=== PATIENT | male | born 1955 | race Caucasian/White ===

== ENCOUNTER 2021-12-27 14:59 | Inpatient (IN) | payer MEDICARE ==
[~2021-12-27] VITALS: Ht 177.8 cm; Wt 89.6 kg
[2021-12-27 15:52] LABS: BASOPHILS ABSOLUTE AUTO 0.04 K/mm3 (0.00-0.23); BASOPHILS PERCENT AUTO 0 % (0-2); EOSINOPHILS PERCENT AUTO 0 % (0-6); Hematocrit 32.5 % (37.0-53.0); Hemoglobin 10.9 g/dL (13.5-17.5); IMMATURE GRAN ABSOLUTE AUTO 0.24 K/mm3 (0.00-0.10); IMMATURE GRAN PERCENT AUTO 1 % (0-1); LYMPHOCYTES ABSOLUTE AUTO 0.96 K/mm3 (0.84-5.20); LYMPHOCYTES PERCENT AUTO 4 % (21-46); MONOCYTES ABSOLUTE AUTO 1.16 K/mm3 (0.16-1.47); MONOCYTES PERCENT AUTO 5 % (4-13); Mean Corpuscular HGB 32.9 pg (26.0-34.0); Mean Corpuscular HGB Conc 33.5 g/dL (31.5-36.5); Mean Corpuscular Volume 98 fL (80-100); Mean Platelet Volume 9.2 fL (9.1-12.4); NEUTROPHILS PERCENT AUTO 89 % (41-73); Platelet Count 170 K/mm3 (150-400); RDW Coefficient Variation 16.3 % (11.7-14.2); RDW Standard Deviation 58.3 fL (35.1-46.3); Red Blood Cell Count 3.31 M/mm3 (4.30-5.90)
[2021-12-27 16:21] LABS: Albumin, Blood 2.6 g/dL (3.4-5.0); Albumin/Globulin Ratio 0.6 (0.8-1.8); Bilirubin, Total 0.6 mg/dL (0.1-1.0); Bun/Creatinine Ratio 7.2 (12.0-20.0); Calcium, Blood 7.9 mg/dL (8.5-10.1); Creatinine, Blood 7.11 mg/dL (0.60-1.20); Globulin, Blood 4.4 g/dL (2.2-4.0)
[2021-12-27 17:25] LABS: Source, Urine Clean Catch
[2021-12-27 17:29] LABS: Appearance, Urine Clear (Clear); Bilirubin, Urine Neg (Neg); Blood, Urine 1+ (Neg); Color, Urine Yellow (P-Yellow); Glucose Qualitative, Urine Neg (Neg); Ketones, Urine Neg (Neg); Leukocyte Esterase, Urine 1+ (Neg); Nitrite, Urine Neg (Neg); Protein, Urine 3+ (Neg); Specific Gravity, Urine 1.015 (1.003-1.022); Urobilinogen, Urine NORM (Normal)
[2021-12-27 17:41] LABS: Bacteria Mod /hpf; Granular Casts 0-2 /lpf (0); Renal Epithelial Rare /hpf (0-Rare); Squamous Epithelial Cells Rare /hpf (Few)
[2021-12-27 18:02] LABS: Influenza A, PCR NEGATIVE (NEGATIVE); Influenza B, PCR NEGATIVE (NEGATIVE); Resp Syncytial Virus, PCR NEGATIVE (NEGATIVE); SARS-Cov-2 (COVID-19) PCR, MMC NEGATIVE (NEGATIVE)
[2021-12-27 18:51] LABS: Percent Saturation 17.8 % (20.0-50.0)
--- NOTE | 2021-12-28 05:24 | NUR ---
SHIFT SUMMARY 66 YR M ADMITTED ON 12/27/21 FOR ACUTE DIVERTICULITIS AND SEVERE ABDOMINAL PAIN. FULL CODE. PT WAS TRANSFERED FROM ED TO THIS FLOOR THIS SHIFT. HE IS HAVING A SIGNIFICANT AMOUNT OF ABDOMINAL PAIN BUT IS NOT OPENELY COMPLAINING. HE HAS SLEPT FOR THE MAJORITY OF THIS SHIFT ALTHOUGH HE HAS BEEN WOKEN A FEW TIMES BY THIS NURSE. HE DOES HEMODIALYSIS 3 X WEEKLY AND HE IS CURRENTLY NPO, ALTHOUGH THE REASON IS UNCLEAR. HE STATES HE IS THIRSTY AND HUNGRY AND THAT HE HAS NOT EATEN IN 3 DAYS. CBS WAS 100 AND INSULIN WAS HELD DUE TO NPO STATUS. PT HAS BEEN PLEASANT AND COOPERATIVE BUT WILL CONTINUALLY ASK FOR ICE CHIPS AND/OR FOOD.
[2021-12-28 05:27] LABS: BASOPHILS ABSOLUTE AUTO 0.02 K/mm3 (0.00-0.23); BASOPHILS PERCENT AUTO 0 % (0-2); EOSINOPHILS ABSOLUTE AUTO 0.01 K/mm3 (0.00-0.68); EOSINOPHILS PERCENT AUTO 0 % (0-6); Hematocrit 30.4 % (37.0-53.0); Hemoglobin 10.2 g/dL (13.5-17.5); IMMATURE GRAN ABSOLUTE AUTO 0.22 K/mm3 (0.00-0.10); IMMATURE GRAN PERCENT AUTO 1 % (0-1); LYMPHOCYTES ABSOLUTE AUTO 0.69 K/mm3 (0.84-5.20); LYMPHOCYTES PERCENT AUTO 4 % (21-46); MONOCYTES ABSOLUTE AUTO 0.63 K/mm3 (0.16-1.47); MONOCYTES PERCENT AUTO 4 % (4-13); Mean Corpuscular HGB 32.7 pg (26.0-34.0); Mean Corpuscular HGB Conc 33.6 g/dL (31.5-36.5); Mean Corpuscular Volume 97 fL (80-100); Mean Platelet Volume 9.4 fL (9.1-12.4); NEUTROPHILS ABSOLUTE AUTO 15.47 K/mm3 (1.96-9.15); NEUTROPHILS PERCENT AUTO 91 % (41-73); Platelet Count 173 K/mm3 (150-400); RDW Coefficient Variation 15.7 % (11.7-14.2); RDW Standard Deviation 56.3 fL (35.1-46.3); Red Blood Cell Count 3.12 M/mm3 (4.30-5.90); White Blood Cell Count 17.04 K/mm3 (4.00-11.30)
[2021-12-28 06:03] LABS: Albumin, Blood 2.3 g/dL (3.4-5.0); Albumin/Globulin Ratio 0.5 (0.8-1.8); Bilirubin, Total 0.5 mg/dL (0.1-1.0); Bun/Creatinine Ratio 7.9 (12.0-20.0); Calcium, Blood 7.4 mg/dL (8.5-10.1); Creatinine, Blood 7.05 mg/dL (0.60-1.20); Globulin, Blood 4.3 g/dL (2.2-4.0); Magnesium, Blood 1.9 mg/dL (1.6-2.4); Phosphorus, Blood 5.6 mg/dL (2.5-4.9); Potassium, Blood 4.3 mmol/L (3.5-5.5); Total Protein, Blood 6.6 g/dL (6.4-8.2)
--- NOTE | 2021-12-28 18:38 | NUR ---
SHIFT SUMMARY; PATIENT RECEIVED HD TODAY. RETURNED TO MED FLOOR APPROX 1230. VISITED THIS AFTERNOON AND DISCUSSED PLAN OF CARE WITH THIS PATIENT. NO SURGCAL INTERVENTION AT THIS TIME.HE ORDERED PATIIENT A CLEAR LIQUID DIET AND IS GOING TO WATCH PATIENTS LABS AND CONTINUE WITH IV ANTIBIOTICS TO SEE IF DIVERTICULITS CAN BE MANAGED AT HOME WITH PO ANTIBIOTCS EVENTUALLY. PATIENT HAS NOT ASKED FOR ANY PAIN MEDICATIONS TODAY. HE HAS GRUFF PRESENTS HOWEVER JOKES WITH STAFF AND HAS MINIMAL WANTS OR NEEDS. HE TAKES HIS MEDICAATIONS WHOLE WITH WATER AND IS CURRENTLY RECEIVIG IV FLUIDS. CHEM BG DO NOT REQUIRE INSULIN COVERAGE THROUGHOUT THE DAY.
[2021-12-29 05:26] LABS: BASOPHILS ABSOLUTE AUTO 0.02 K/mm3 (0.00-0.23); BASOPHILS PERCENT AUTO 0 % (0-2); EOSINOPHILS ABSOLUTE AUTO 0.01 K/mm3 (0.00-0.68); EOSINOPHILS PERCENT AUTO 0 % (0-6); Hematocrit 32.3 % (37.0-53.0); Hemoglobin 10.7 g/dL (13.5-17.5); IMMATURE GRAN ABSOLUTE AUTO 0.11 K/mm3 (0.00-0.10); IMMATURE GRAN PERCENT AUTO 1 % (0-1); LYMPHOCYTES ABSOLUTE AUTO 0.84 K/mm3 (0.84-5.20); LYMPHOCYTES PERCENT AUTO 6 % (21-46); MONOCYTES ABSOLUTE AUTO 0.86 K/mm3 (0.16-1.47); MONOCYTES PERCENT AUTO 6 % (4-13); Mean Corpuscular HGB 32.4 pg (26.0-34.0); Mean Corpuscular HGB Conc 33.1 g/dL (31.5-36.5); Mean Corpuscular Volume 98 fL (80-100); Mean Platelet Volume 9.1 fL (9.1-12.4); NEUTROPHILS ABSOLUTE AUTO 12.39 K/mm3 (1.96-9.15); NEUTROPHILS PERCENT AUTO 87 % (41-73); Platelet Count 188 K/mm3 (150-400); RDW Coefficient Variation 15.2 % (11.7-14.2); RDW Standard Deviation 54.9 fL (35.1-46.3); White Blood Cell Count 14.23 K/mm3 (4.00-11.30)
--- NOTE | 2021-12-29 05:34 | NUR ---
SHIFT SUMMARY NOC: PT SLEPT MOST OF NIGHT. PT REPORTS NO PAIN OR NAUSEA. PT USES URINAL. NO BM TONIGHT. NO ACUTE OVERNIGHT EVENTS.
[2021-12-29 06:05] LABS: Albumin, Blood 2.4 g/dL (3.4-5.0); Albumin/Globulin Ratio 0.6 (0.8-1.8); Bilirubin, Total 0.4 mg/dL (0.1-1.0); Bun/Creatinine Ratio 7.5 (12.0-20.0); Calcium, Blood 8.8 mg/dL (8.5-10.1); Creatinine, Blood 4.55 mg/dL (0.60-1.20); Magnesium, Blood 2.3 mg/dL (1.6-2.4); Phosphorus, Blood 3.6 mg/dL (2.5-4.9); Potassium, Blood 3.8 mmol/L (3.5-5.5); Total Protein, Blood 6.4 g/dL (6.4-8.2)
--- NOTE | 2021-12-29 08:00 | NUR ---
pt laying in bed on his side, wakes easily, denies complaints, states he slept ok last night, lungs are clear dim in bases, on r/a, no cough noted, hrr, no edema noted, ppp+1, cap refill <3sec, vs stable, afebrile, iv site is clear and patent, btx4, abd flat soft nontneder, voids without diff, skin c/w/d, maew, sba to bathroom, radha, call light in reach.
--- NOTE | 2021-12-29 18:22 | NUR ---
pt in better spirits this evening, denies pain, no acute changes this shift call light in reach.
--- NOTE | 2021-12-30 04:02 | NUR ---
SHIFT SUMMARY: PT IS A/OX4. HE WAS INDEPENDENT IN THE ROOM AND HAD MINIMAL NEEDS. THE ONLY C/O THE PT HAD WAS CONSTIPATION. PRN BID DOCUSATE SODIUM WAS ADMINISTERED. HE STATED HIS LAST BM WAS 12/29, BUT IT'S BEEN A WEEK BEFORE THAT BM. THE PT'S CALL LIGHT IS WITHIN REACH AND WE'LL CONTINUE TO MONITOR.
[2021-12-30 05:34] LABS: Hematocrit 34.3 % (37.0-53.0); Hemoglobin 11.1 g/dL (13.5-17.5)
[2021-12-30 07:06] LABS: Albumin, Blood 2.4 g/dL (3.4-5.0); Anion Gap 8 mmol/L (6-16); Blood Urea Nitrogen 42 mg/dL (8-24); Bun/Creatinine Ratio 8.3 (12.0-20.0); CO2, Blood 24 mmol/L (21-32); Calcium, Blood 8.1 mg/dL (8.5-10.1); Chloride, Blood 106 mmol/L (98-108); Creatinine, Blood 5.04 mg/dL (0.60-1.20); Glomerular Filtration Rate 12 (60-); Glucose, Blood 115 mg/dL (70-99); Phosphorus, Blood 2.7 mg/dL (2.5-4.9); Potassium, Blood 3.8 mmol/L (3.5-5.5); Sodium, Blood 138 mmol/L (136-145)
--- NOTE | 2021-12-30 07:59 | NUR ---
pt laying in bed on his side, awake a/ox3, cooperative with care, follows commands, lungs are clear t/o, on r/a, resp even and unlabored, no cough noted, hrr, no edema noted, ppp+1, cap refill <3sec, vs stable, afebrile, no insulin coverage this am, iv to rac site is clear and patent, shunt to left arm, btx4, hypoactive abd round soft nonteder, but is complaining of cramping after having ducosate, reports voiding without diff, skin frail but intact, radha laguna, no dialysis today, call light in reach.
--- NOTE | 2021-12-30 18:11 | NUR ---
pt has had an upset stomach and abd all day, he states its from cramping from stool softner that was given, he did have several small bms today, states he feels better but still not great, had a h/a this afternoon as well, doing better this evening. call light in reach.
--- NOTE | 2021-12-31 04:26 | NUR ---
SHIFT SUMMARY PATIENT HAD NO ACUTE CHANGES. AXOX 3 AND SBA TO BR. PIV REMAINS INTACT. IV ABX INFUSED. USES URINAL AT BEDSIDE. VSS/AFEBRILE. DENIES CHEST PAIN, SOB, AND N/V. REPORTED MCWILLIAMS X ONE AND TYLENOL 650 MG GIVEN PER EMAR. PATIENT ABLE TO GO BACK TO SLEEP WITH PAIN RELIEF. POSSIBLE DIALYSIS TODAY. CALL LIGHT IN REACH. BED IN LOWEST POSITION. WILL CONTINUE TO MONITOR UNTIL DAY SHIFT NURSE ASSUMES CARE.
[2021-12-31 05:34] LABS: BASOPHILS ABSOLUTE AUTO 0.03 K/mm3 (0.00-0.23); BASOPHILS PERCENT AUTO 0 % (0-2); EOSINOPHILS ABSOLUTE AUTO 0.01 K/mm3 (0.00-0.68); EOSINOPHILS PERCENT AUTO 0 % (0-6); Hematocrit 33.3 % (37.0-53.0); Hemoglobin 10.9 g/dL (13.5-17.5); IMMATURE GRAN ABSOLUTE AUTO 0.23 K/mm3 (0.00-0.10); IMMATURE GRAN PERCENT AUTO 1 % (0-1); LYMPHOCYTES ABSOLUTE AUTO 1.23 K/mm3 (0.84-5.20); LYMPHOCYTES PERCENT AUTO 6 % (21-46); MONOCYTES ABSOLUTE AUTO 1.04 K/mm3 (0.16-1.47); MONOCYTES PERCENT AUTO 5 % (4-13); Mean Corpuscular HGB 32.6 pg (26.0-34.0); Mean Corpuscular HGB Conc 32.7 g/dL (31.5-36.5); Mean Corpuscular Volume 100 fL (80-100); Mean Platelet Volume 8.9 fL (9.1-12.4); NEUTROPHILS ABSOLUTE AUTO 17.15 K/mm3 (1.96-9.15); NEUTROPHILS PERCENT AUTO 87 % (41-73); NRBC ABSOLUTE 0.02 K/mm3 (0.00-0.02); NRBC Auto 0.1 /100 WBC (0.0-0.2); Platelet Count 205 K/mm3 (150-400); RDW Coefficient Variation 15.5 % (11.7-14.2); RDW Standard Deviation 56.8 fL (35.1-46.3); Red Blood Cell Count 3.34 M/mm3 (4.30-5.90); White Blood Cell Count 19.69 K/mm3 (4.00-11.30)
[2021-12-31 06:02] LABS: Albumin, Blood 2.4 g/dL (3.4-5.0); Albumin/Globulin Ratio 0.6 (0.8-1.8); Bilirubin, Total 0.4 mg/dL (0.1-1.0); Calcium, Blood 8.3 mg/dL (8.5-10.1); Creatinine, Blood 4.87 mg/dL (0.60-1.20); Magnesium, Blood 2.2 mg/dL (1.6-2.4); Phosphorus, Blood 3.1 mg/dL (2.5-4.9); Potassium, Blood 4.1 mmol/L (3.5-5.5); Total Protein, Blood 6.4 g/dL (6.4-8.2)
--- NOTE | 2021-12-31 17:12 | NUR ---
PT IS A/OX3, PLEASANT AND COOPERATIVE. THE PT IS UP WITH ASSIST. THE PT APPEARS TO BE BREATHING EASILY ON RA. THE PT REPORTED ABD PAIN AND NAUSEA TODAY. PT WAS MEDICATED FOR NAUSEA X1 DURING HIS DIALYSIS TX. THE PT WAS MEDICATED FOR PAIN WITH TYLENOL HE REQUESTED. PT HAS MINIMAL PO INTAKE SO FAR TODAY. CALL LIGHT IN REACH. WILL CONTINUE TO MONITOR AND ASSESS FOR CHANGES
--- NOTE | 2022-01-01 04:19 | NUR ---
66 year old MAle with ESRD on hemodialysis continues on antibiotics to treat diverticulitis with perforations without abscess. CO lower abd pain relieved by tylenol use PRN. PT says he was constipated but had bowel care with several BMS results. Lives at [facility] & has hemodialysis 3 days a week. Had dialysis yesterday & tolerated well. Tolerating diet & activity.
[2022-01-01 05:44] LABS: BASOPHILS ABSOLUTE AUTO 0.05 K/mm3 (0.00-0.23); BASOPHILS PERCENT AUTO 0 % (0-2); EOSINOPHILS ABSOLUTE AUTO 0.03 K/mm3 (0.00-0.68); EOSINOPHILS PERCENT AUTO 0 % (0-6); Hematocrit 34.2 % (37.0-53.0); Hemoglobin 11.3 g/dL (13.5-17.5); IMMATURE GRAN ABSOLUTE AUTO 0.27 K/mm3 (0.00-0.10); IMMATURE GRAN PERCENT AUTO 2 % (0-1); LYMPHOCYTES ABSOLUTE AUTO 2.21 K/mm3 (0.84-5.20); LYMPHOCYTES PERCENT AUTO 13 % (21-46); MONOCYTES ABSOLUTE AUTO 1.05 K/mm3 (0.16-1.47); MONOCYTES PERCENT AUTO 6 % (4-13); Mean Corpuscular Volume 97 fL (80-100); Mean Platelet Volume 8.9 fL (9.1-12.4); NEUTROPHILS ABSOLUTE AUTO 13.52 K/mm3 (1.96-9.15); NEUTROPHILS PERCENT AUTO 79 % (41-73); Platelet Count 253 K/mm3 (150-400); RDW Coefficient Variation 15.6 % (11.7-14.2); RDW Standard Deviation 55.5 fL (35.1-46.3); Red Blood Cell Count 3.53 M/mm3 (4.30-5.90); White Blood Cell Count 17.13 K/mm3 (4.00-11.30)
[2022-01-01 06:02] LABS: Magnesium, Blood 2.1 mg/dL (1.6-2.4)
[2022-01-01 06:03] LABS: Albumin, Blood 2.4 g/dL (3.4-5.0); Albumin/Globulin Ratio 0.6 (0.8-1.8); Bilirubin, Total 0.3 mg/dL (0.1-1.0); Bun/Creatinine Ratio 6.8 (12.0-20.0); Calcium, Blood 9.3 mg/dL (8.5-10.1); Creatinine, Blood 3.84 mg/dL (0.60-1.20); Globulin, Blood 4.2 g/dL (2.2-4.0); Phosphorus, Blood 2.3 mg/dL (2.5-4.9); Potassium, Blood 3.7 mmol/L (3.5-5.5); Total Protein, Blood 6.6 g/dL (6.4-8.2)
[2022-01-01] MEDS ORDERED: AMLO10 PO (15:32)
[2022-01-01] MEDS ORDERED: BENZ100A PO (15:32)
[2022-01-01] MEDS ORDERED: GLIP2.5ER PO (15:33)
[2022-01-01] MEDS ORDERED: LISI20 PO (15:35)
[2022-01-01] MEDS ORDERED: Prednisone10 MG PO (15:36)
[2022-01-01] MEDS ORDERED: Rena-Vite Tabl0.8 MG PO (15:37)
[2022-01-01] MEDS ORDERED: D2 PO (15:43)
--- NOTE | 2022-01-01 18:41 | NUR ---
PT IS A/OX3, PLEASANT AND COOPERATIVE. THE PT IS UP IND IN HIS ROOM. THE PT WAS MEDICATED FOR PAIN T/O THE DAY WITH IV MORPHINE HE REQUESTED. THE PT HAS BEEN ABLE TO TOLERATE A LIITLE MORE PO INTAKE TODAY COMPARED TO YESTERDAY. PT DENIED ANY NAUSEA TODAY. PT APPEARS TO BE BREATHING EASILY ON RA AT THIS TIME. CALL LIGHT IN REACH. WILL CONTINUE TO MONITOR AND ASSESS FOR CHANGES
[2022-01-02 06:20] LABS: BASOPHILS ABSOLUTE AUTO 0.04 K/mm3 (0.00-0.23); BASOPHILS PERCENT AUTO 0 % (0-2); EOSINOPHILS ABSOLUTE AUTO 0.03 K/mm3 (0.00-0.68); EOSINOPHILS PERCENT AUTO 0 % (0-6); Hematocrit 33.2 % (37.0-53.0); IMMATURE GRAN ABSOLUTE AUTO 0.21 K/mm3 (0.00-0.10); IMMATURE GRAN PERCENT AUTO 1 % (0-1); LYMPHOCYTES ABSOLUTE AUTO 1.71 K/mm3 (0.84-5.20); LYMPHOCYTES PERCENT AUTO 11 % (21-46); MONOCYTES ABSOLUTE AUTO 0.86 K/mm3 (0.16-1.47); MONOCYTES PERCENT AUTO 6 % (4-13); Mean Corpuscular HGB 32.2 pg (26.0-34.0); Mean Corpuscular HGB Conc 33.1 g/dL (31.5-36.5); Mean Corpuscular Volume 97 fL (80-100); Mean Platelet Volume 8.7 fL (9.1-12.4); NEUTROPHILS ABSOLUTE AUTO 12.17 K/mm3 (1.96-9.15); NEUTROPHILS PERCENT AUTO 81 % (41-73); Platelet Count 225 K/mm3 (150-400); RDW Coefficient Variation 15.6 % (11.7-14.2); Red Blood Cell Count 3.42 M/mm3 (4.30-5.90); White Blood Cell Count 15.02 K/mm3 (4.00-11.30)
[2022-01-02 06:38] LABS: Albumin, Blood 2.5 g/dL (3.4-5.0); Anion Gap 8 mmol/L (6-16); Blood Urea Nitrogen 36 mg/dL (8-24); Bun/Creatinine Ratio 8.1 (12.0-20.0); CO2, Blood 27 mmol/L (21-32); Chloride, Blood 100 mmol/L (98-108); Creatinine, Blood 4.42 mg/dL (0.60-1.20); Glomerular Filtration Rate 14 (60-); Glucose, Blood 113 mg/dL (70-99); Phosphorus, Blood 2.6 mg/dL (2.5-4.9); Potassium, Blood 3.8 mmol/L (3.5-5.5); Sodium, Blood 135 mmol/L (136-145)
--- NOTE | 2022-01-02 18:10 | NUR ---
PT IS A/OX4, PLEASANT AND COOPERATIVE. THE PT APPEARS TO BE BREATHING EASILY ON RA AT THIS TIME. THE PT WAS MEDICATED FOR NAUSEA X2 TODAY AND CONTINUES TO HAVE ABD CRAMPING AND SHARP PAINS AT TIMES.PT WAS MEDICATED FOR PAIN. PT HAD DIALYSIS TODAY. PT WAS UP AND SHOWERED BEFORE DIALYSIS. PTS DAUGHTER MARTIN WAS CALLED AND UPDATED ON THE PLAN OF CARE. CALL LIGHT IN REACH WILL CONTINUE TO MONITOR AND ASSESS FOR CHANGES
[2022-01-03 05:59] LABS: BASOPHILS ABSOLUTE AUTO 0.06 K/mm3 (0.00-0.23); BASOPHILS PERCENT AUTO 0 % (0-2); EOSINOPHILS ABSOLUTE AUTO 0.01 K/mm3 (0.00-0.68); EOSINOPHILS PERCENT AUTO 0 % (0-6); Hematocrit 35.2 % (37.0-53.0); Hemoglobin 11.7 g/dL (13.5-17.5); IMMATURE GRAN ABSOLUTE AUTO 0.31 K/mm3 (0.00-0.10); IMMATURE GRAN PERCENT AUTO 2 % (0-1); LYMPHOCYTES ABSOLUTE AUTO 1.12 K/mm3 (0.84-5.20); LYMPHOCYTES PERCENT AUTO 6 % (21-46); MONOCYTES ABSOLUTE AUTO 0.64 K/mm3 (0.16-1.47); MONOCYTES PERCENT AUTO 4 % (4-13); Mean Corpuscular HGB 32.1 pg (26.0-34.0); Mean Corpuscular HGB Conc 33.2 g/dL (31.5-36.5); Mean Corpuscular Volume 97 fL (80-100); Mean Platelet Volume 8.8 fL (9.1-12.4); NEUTROPHILS ABSOLUTE AUTO 16.13 K/mm3 (1.96-9.15); NEUTROPHILS PERCENT AUTO 88 % (41-73); NRBC ABSOLUTE 0.04 K/mm3 (0.00-0.02); NRBC Auto 0.2 /100 WBC (0.0-0.2); Platelet Count 239 K/mm3 (150-400); RDW Coefficient Variation 15.9 % (11.7-14.2); RDW Standard Deviation 56.6 fL (35.1-46.3); Red Blood Cell Count 3.64 M/mm3 (4.30-5.90); White Blood Cell Count 18.27 K/mm3 (4.00-11.30)
[2022-01-03 06:13] LABS: Albumin, Blood 2.5 g/dL (3.4-5.0); Anion Gap 9 mmol/L (6-16); Blood Urea Nitrogen 30 mg/dL (8-24); Bun/Creatinine Ratio 6.7 (12.0-20.0); CO2, Blood 28 mmol/L (21-32); Calcium, Blood 9.3 mg/dL (8.5-10.1); Chloride, Blood 98 mmol/L (98-108); Creatinine, Blood 4.47 mg/dL (0.60-1.20); Glomerular Filtration Rate 14 (60-); Glucose, Blood 146 mg/dL (70-99); Phosphorus, Blood 2.8 mg/dL (2.5-4.9); Potassium, Blood 3.8 mmol/L (3.5-5.5); Sodium, Blood 135 mmol/L (136-145)
--- NOTE | 2022-01-03 06:48 | NUR ---
PT very quiet this 12 hour shift. 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 WBC bumped up but no fevers. Very poor appetite .
--- NOTE | 2022-01-03 14:04 | NUR ---
Visited pt to provide diverticulosis/diverticulitis nutrition education. Pt was receptive to education, however he reported that feeling ill makes it difficult to retain knowledge. Reviewed fiber recommendations and encouraged pt to consume adequate fluids. Pt indicated that he has heard dietary recommendations for diverticulitis regarding specific foods, however he was less certain about general recommendations. Pt reported limited baseline understanding of fiber containing foods, so sources and ways to modify intake were discussed.
--- NOTE | 2022-01-03 17:14 | NUR ---
Patient has been working through pain throughout duration of shift. Treated with morphine and oxycodone per EMR. Patient has poor appetite and refused breakfast. Shift otherwise unremarkable. Will continue to treat pain PRN. Call light left within reach.
--- NOTE | 2022-01-04 05:47 | NUR ---
SHIFT SUMMARY NOC: PT HAS 2-3 PAIN TO LOWER ABDOMEN. PRN NORCO GIVEN ONCE DURING SHIFT. PT SLEPT MOST OF NIGHT. NO ACUTE EVENTS.
[2022-01-04 05:58] LABS: BASOPHILS ABSOLUTE AUTO 0.07 K/mm3 (0.00-0.23); BASOPHILS PERCENT AUTO 0 % (0-2); EOSINOPHILS ABSOLUTE AUTO 0.03 K/mm3 (0.00-0.68); EOSINOPHILS PERCENT AUTO 0 % (0-6); Hematocrit 34.5 % (37.0-53.0); Hemoglobin 11.6 g/dL (13.5-17.5); IMMATURE GRAN ABSOLUTE AUTO 0.39 K/mm3 (0.00-0.10); IMMATURE GRAN PERCENT AUTO 2 % (0-1); LYMPHOCYTES PERCENT AUTO 7 % (21-46); MONOCYTES ABSOLUTE AUTO 1.05 K/mm3 (0.16-1.47); MONOCYTES PERCENT AUTO 4 % (4-13); Mean Corpuscular HGB 32.8 pg (26.0-34.0); Mean Corpuscular HGB Conc 33.6 g/dL (31.5-36.5); Mean Corpuscular Volume 98 fL (80-100); Mean Platelet Volume 8.7 fL (9.1-12.4); NEUTROPHILS ABSOLUTE AUTO 20.82 K/mm3 (1.96-9.15); NEUTROPHILS PERCENT AUTO 87 % (41-73); NRBC ABSOLUTE 0.03 K/mm3 (0.00-0.02); NRBC Auto 0.1 /100 WBC (0.0-0.2); Platelet Count 227 K/mm3 (150-400); RDW Coefficient Variation 16.2 % (11.7-14.2); RDW Standard Deviation 58.1 fL (35.1-46.3); Red Blood Cell Count 3.54 M/mm3 (4.30-5.90); White Blood Cell Count 23.96 K/mm3 (4.00-11.30)
[2022-01-04 06:08] LABS: Albumin, Blood 2.4 g/dL (3.4-5.0); Anion Gap 9 mmol/L (6-16); Blood Urea Nitrogen 33 mg/dL (8-24); Bun/Creatinine Ratio 6.5 (12.0-20.0); CO2, Blood 27 mmol/L (21-32); Calcium, Blood 8.8 mg/dL (8.5-10.1); Chloride, Blood 98 mmol/L (98-108); Creatinine, Blood 5.11 mg/dL (0.60-1.20); Glomerular Filtration Rate 12 (60-); Glucose, Blood 122 mg/dL (70-99); Phosphorus, Blood 2.2 mg/dL (2.5-4.9); Potassium, Blood 3.8 mmol/L (3.5-5.5); Sodium, Blood 134 mmol/L (136-145)
--- NOTE | 2022-01-04 18:02 | NUR ---
Patient continues to experience abdominal pain r/t diverticulitis. Well managed with current pain medication regimen per EMR. Patient had dialysis this morning. Shift otherwise unremarkable. Call light left within reach.
[2022-01-05 05:37] LABS: BASOPHILS ABSOLUTE AUTO 0.06 K/mm3 (0.00-0.23); BASOPHILS PERCENT AUTO 0 % (0-2); EOSINOPHILS ABSOLUTE AUTO 0.08 K/mm3 (0.00-0.68); EOSINOPHILS PERCENT AUTO 0 % (0-6); Hematocrit 32.5 % (37.0-53.0); Hemoglobin 10.5 g/dL (13.5-17.5); IMMATURE GRAN ABSOLUTE AUTO 0.39 K/mm3 (0.00-0.10); IMMATURE GRAN PERCENT AUTO 2 % (0-1); LYMPHOCYTES ABSOLUTE AUTO 1.72 K/mm3 (0.84-5.20); LYMPHOCYTES PERCENT AUTO 8 % (21-46); MONOCYTES ABSOLUTE AUTO 1.11 K/mm3 (0.16-1.47); MONOCYTES PERCENT AUTO 6 % (4-13); Mean Corpuscular HGB 31.9 pg (26.0-34.0); Mean Corpuscular HGB Conc 32.3 g/dL (31.5-36.5); Mean Corpuscular Volume 99 fL (80-100); NEUTROPHILS PERCENT AUTO 84 % (41-73); Platelet Count 228 K/mm3 (150-400); RDW Coefficient Variation 16.4 % (11.7-14.2); Red Blood Cell Count 3.29 M/mm3 (4.30-5.90); White Blood Cell Count 20.36 K/mm3 (4.00-11.30)
--- NOTE | 2022-01-05 05:38 | NUR ---
SHIFT SUMMARY NOC: PT SLEPT ALL NIGHT IN BED. PT ASKS FOR PRN PAIN MEDS TWICE. PAIN TO LOWER ABDOMEN WELL CONTROLLED WITH PRN PAIN MEDS. NO ACUTE EVENTS.
[2022-01-05 06:04] LABS: Albumin, Blood 2.2 g/dL (3.4-5.0); Anion Gap 9 mmol/L (6-16); Blood Urea Nitrogen 25 mg/dL (8-24); Bun/Creatinine Ratio 5.9 (12.0-20.0); CO2, Blood 29 mmol/L (21-32); Calcium, Blood 8.6 mg/dL (8.5-10.1); Chloride, Blood 98 mmol/L (98-108); Creatinine, Blood 4.22 mg/dL (0.60-1.20); Glomerular Filtration Rate 15 (60-); Glucose, Blood 129 mg/dL (70-99); Phosphorus, Blood 2.1 mg/dL (2.5-4.9); Potassium, Blood 3.8 mmol/L (3.5-5.5); Sodium, Blood 136 mmol/L (136-145)
[2022-01-05] MEDS ORDERED: ERGO50000 PO (06:25)
[2022-01-05] MEDS ORDERED: LOSARTAN POTAS100 MG PO (06:26)
[2022-01-05] MEDS ORDERED: CALCIUM CARBON200 M1 PO (06:27)
[2022-01-05] MEDS ORDERED: FURO80 PO (06:27)
--- NOTE | 2022-01-05 19:24 | NUR ---
MIRIAM CONTINUES TO COMPLAIN OF MILD TO MODERATE PAIN IN LOWER ABD. APPETITE STILL NOT BACK TO NORMAL, ALTHOUGH HE IS TOLERATING PO INTAKE. RED ITCHY AREA ON WAIST/BELTLINE WITH NYSTATIN CREAM ORDERED. LEFT ARM FISTUAL WITH POSITIVE BRUIT AND THRILL. RIGHT AC IV FLUSHES WELL.
[2022-01-06 05:13] LABS: BASOPHILS ABSOLUTE AUTO 0.04 K/mm3 (0.00-0.23); BASOPHILS PERCENT AUTO 0 % (0-2); EOSINOPHILS ABSOLUTE AUTO 0.07 K/mm3 (0.00-0.68); EOSINOPHILS PERCENT AUTO 1 % (0-6); Hematocrit 30.9 % (37.0-53.0); Hemoglobin 10.2 g/dL (13.5-17.5); IMMATURE GRAN ABSOLUTE AUTO 0.27 K/mm3 (0.00-0.10); IMMATURE GRAN PERCENT AUTO 2 % (0-1); LYMPHOCYTES ABSOLUTE AUTO 1.18 K/mm3 (0.84-5.20); LYMPHOCYTES PERCENT AUTO 8 % (21-46); MONOCYTES ABSOLUTE AUTO 0.89 K/mm3 (0.16-1.47); MONOCYTES PERCENT AUTO 6 % (4-13); Mean Corpuscular HGB 32.2 pg (26.0-34.0); Mean Corpuscular Volume 98 fL (80-100); Mean Platelet Volume 8.8 fL (9.1-12.4); NEUTROPHILS ABSOLUTE AUTO 12.35 K/mm3 (1.96-9.15); NEUTROPHILS PERCENT AUTO 83 % (41-73); Platelet Count 244 K/mm3 (150-400); RDW Standard Deviation 57.5 fL (35.1-46.3); Red Blood Cell Count 3.17 M/mm3 (4.30-5.90)
--- NOTE | 2022-01-06 05:25 | NUR ---
SHIFT SUMMARY NOC: PT SLEPT ALL NIGHT. PT HAS 2-4/10 PAIN TO LOWER ABDOMEN CONTROLLED WITH PRN PAIN MEDICATION. PT COMPLIANT WITH CARE. NO ACUTE EVENTS.
[2022-01-06 05:52] LABS: Albumin, Blood 2.2 g/dL (3.4-5.0); Albumin/Globulin Ratio 0.6 (0.8-1.8); Bilirubin, Total 0.4 mg/dL (0.1-1.0); Bun/Creatinine Ratio 6.4 (12.0-20.0); Calcium, Blood 8.1 mg/dL (8.5-10.1); Creatinine, Blood 4.55 mg/dL (0.60-1.20); Globulin, Blood 3.9 g/dL (2.2-4.0); Phosphorus, Blood 2.3 mg/dL (2.5-4.9); Potassium, Blood 3.9 mmol/L (3.5-5.5); Total Protein, Blood 6.1 g/dL (6.4-8.2)
--- NOTE | 2022-01-06 18:34 | NUR ---
SHIFT SUMMARY PATIENT MEDICATED FOR PAIN X2. PATIENT DENIES NAUSEA AND SHORTNESS OF BREATH. PATIENT IS IND IN ROOM. POSSIBLE REPEAT CT OF ABDOMEN TOMORROW. PATIENT MEDICATED WITH PRN LAXATIVE. SMALL BM. NEW ORDERS FOR ONE TIME DOSE OF PERCOCET TO SEE IF THAT HELPS CONTROL PAIN BETTER. PATIENT REFUSED, STATING THIS MEDICATION MAKES HIM "ITCHY". PATIENT HAS POOR PO INTAKE. EATS VERY LITTLE, BUT DRINKS OKAY. UPDATE GIVEN TO OUTPATIENT DIALYSIS FOR PATIENT. PER DR. LOPEZ, DIALYSIS TOMORROW. PATIENT IS PLEASANT AND COOPERATIVE WITH CARE.
--- NOTE | 2022-01-07 04:53 | NUR ---
SHIFT SUMMARY A/OX4, IND IN ROOM. C/O MODERATE LOWER ABD PAIN, MEDICATED PER EMAR. FISTULA TO MUSA. VSS, NO ACUTE CHANGES AT THIS TIME. BED IN LOWEST POSITION WITH CALL LIGHT IN REACH. WILL CONTINUE TO MONITOR AND REPORT TO ONCOMING RN.
[2022-01-07 06:15] LABS: Hemoglobin 11.2 g/dL (13.5-17.5)
[2022-01-07 06:33] LABS: Albumin, Blood 2.5 g/dL (3.4-5.0); Anion Gap 10 mmol/L (6-16); Blood Urea Nitrogen 28 mg/dL (8-24); CO2, Blood 25 mmol/L (21-32); Calcium, Blood 8.4 mg/dL (8.5-10.1); Chloride, Blood 101 mmol/L (98-108); Creatinine, Blood 4.69 mg/dL (0.60-1.20); Glomerular Filtration Rate 13 (60-); Glucose, Blood 119 mg/dL (70-99); Magnesium, Blood 1.9 mg/dL (1.6-2.4); Phosphorus, Blood 2.5 mg/dL (2.5-4.9); Potassium, Blood 3.9 mmol/L (3.5-5.5); Sodium, Blood 136 mmol/L (136-145)
--- NOTE | 2022-01-07 12:37 | NUR ---
DECLAN SAVAGE RUN AT DIALYSIS. RUN AT END.
--- NOTE | 2022-01-07 12:47 | NUR ---
DISCUSSED WITHPT HIS LAST B/M STATUS. STATES SMALL SMEAR THIS AM, NONE SINCE 12/30. ADMIN PRN MIRALAX AND [place].
--- NOTE | 2022-01-07 15:36 | NUR ---
PT REPORTS ONE LOOSE STOOL TODAY
--- NOTE | 2022-01-07 18:41 | NUR ---
PT PLEASANT MOST OF DAY. MINOR COMPLAINTS ABOUT WATER NOT BEING FILLED AND SPILLED. PT DID DIALYSIS TODAY. REASH ON ABD AND TETO TREATED PER EMAR. PT AMBULATED SELF TO BATHROOM. STATES DID HAVE BM LOOSE TODAY. NO NEW CONCERNS NOTED. U/S FO ABD DONE TODAY. DR DONIS IN TO SEE PT AND STATES PLAN IS TO CONTINUE ABX. NOT SURGERY. BED IN LOW POSITION,C ALL LITE IN REACH, CALLS APPROP
--- NOTE | 2022-01-08 05:50 | NUR ---
SHIFT SUMMARY PATIENT ALERT AND ORIENTED X3. MEDICATED PER EMAR FOR PAIN. HAD NO COMPLAINTS OF SHORTNESS OF BREATH. NO ACUTE ISSUES NOTED OVERNIGHT. CALL LIGHT WITHIN REACH. REPORT GIVEN TO ONCOMING RN.
[2022-01-08 05:58] LABS: BASOPHILS ABSOLUTE AUTO 0.06 K/mm3 (0.00-0.23); BASOPHILS PERCENT AUTO 1 % (0-2); EOSINOPHILS ABSOLUTE AUTO 0.05 K/mm3 (0.00-0.68); EOSINOPHILS PERCENT AUTO 0 % (0-6); Hemoglobin 11.6 g/dL (13.5-17.5); IMMATURE GRAN ABSOLUTE AUTO 0.34 K/mm3 (0.00-0.10); IMMATURE GRAN PERCENT AUTO 3 % (0-1); LYMPHOCYTES ABSOLUTE AUTO 1.45 K/mm3 (0.84-5.20); LYMPHOCYTES PERCENT AUTO 11 % (21-46); MONOCYTES ABSOLUTE AUTO 1.08 K/mm3 (0.16-1.47); MONOCYTES PERCENT AUTO 8 % (4-13); Mean Corpuscular HGB 31.8 pg (26.0-34.0); Mean Corpuscular HGB Conc 32.2 g/dL (31.5-36.5); Mean Corpuscular Volume 99 fL (80-100); NEUTROPHILS ABSOLUTE AUTO 10.05 K/mm3 (1.96-9.15); NEUTROPHILS PERCENT AUTO 77 % (41-73); Platelet Count 205 K/mm3 (150-400); RDW Coefficient Variation 16.9 % (11.7-14.2); RDW Standard Deviation 60.7 fL (35.1-46.3); Red Blood Cell Count 3.65 M/mm3 (4.30-5.90); White Blood Cell Count 13.03 K/mm3 (4.00-11.30)
[2022-01-08 06:06] LABS: Albumin, Blood 2.3 g/dL (3.4-5.0); Anion Gap 10 mmol/L (6-16); Blood Urea Nitrogen 19 mg/dL (8-24); Bun/Creatinine Ratio 5.2 (12.0-20.0); CO2, Blood 28 mmol/L (21-32); Calcium, Blood 8.2 mg/dL (8.5-10.1); Chloride, Blood 100 mmol/L (98-108); Creatinine, Blood 3.67 mg/dL (0.60-1.20); Glomerular Filtration Rate 17 (60-); Glucose, Blood 107 mg/dL (70-99); Magnesium, Blood 1.7 mg/dL (1.6-2.4); Phosphorus, Blood 3.2 mg/dL (2.5-4.9); Potassium, Blood 4.1 mmol/L (3.5-5.5); Sodium, Blood 138 mmol/L (136-145)
--- NOTE | 2022-01-08 10:29 | NUR ---
HTN, 182/150 1/2 HOUR AFTER AM MEDS. GAVE HYDRALAZINE 10 MG. BP NOW 134/60
[2022-01-08] MEDS ORDERED: BANATROL PLUS1 EAC1 PO (15:22)
[2022-01-08] MEDS ORDERED: BENZ100A PO (15:23)
[2022-01-08] MEDS ORDERED: NYSTATIN15 GM TOP (15:23)
[2022-01-08] MEDS ORDERED: Norco 5-325 Ta1 EACH PO (15:23)
[2022-01-08] MEDS ORDERED: VISBIOME 112.51 EACH PO (15:24)
--- NOTE | 2022-01-08 17:25 | NUR ---
STEVIE REVIEWED WITH PT . HE VERBALIZED UNDERSTANDING MEDS AND INST. RX FOR NORCO PLACED IN HIS D/C FOLDER. RT FLAP. HE INITIALLED RECEIPT. IV PULLED INTACT. NO TELE. LYING ON BED PENDING RIDE. PT STATES SHOULD HAVE NO PROBLEM GOING TO DIALYSIS TOMORROW SCHEDULED. FRIEND TAKING HIM HOME TO [place]. PT STATES HAS VEHICLE THERE.
--- NOTE | 2022-01-08 17:47 | NUR ---
PT WHEELED TO DOOR BY AIDE WITH PT FRIEND. HE TO TAKE HOME. OUT AT [id number]
== END 2022-01-08 17:47 | disposition home or self-care (01) | DRG 871 ==
LOC: ER 14:59 → MEDS 18:27
PROVIDERS: Emergency Medicine; Family Medicine; Internal Medicine Nephrology; ADMIT Internal Medicine
DX: A41.9 Sepsis, unspecified organism (principal); N18.6 End stage renal disease; K57.20 Diverticulitis of large intestine with perforation and abscess without bleeding; I12.0 Hypertensive chronic kidney disease with stage 5 chronic kidney disease or end stage renal disease; N39.0 Urinary tract infection, site not specified; E87.1 Hypo-osmolality and hyponatremia; Z20.822 Contact with and (suspected) exposure to COVID-19; D72.828 Other elevated white blood cell count; T38.0X5A Adverse effect of glucocorticoids and synthetic analogues, initial encounter; E83.39 Other disorders of phosphorus metabolism; M06.9 Rheumatoid arthritis, unspecified; E11.22 Type 2 diabetes mellitus with diabetic chronic kidney disease; M10.9 Gout, unspecified; R19.7 Diarrhea, unspecified; D63.1 Anemia in chronic kidney disease; Z99.2 Dependence on renal dialysis; Z98.890 Other specified postprocedural states; Z88.0 Allergy status to penicillin; Z88.5 Allergy status to narcotic agent
CPT/HCPCS: 0241U; 36415; 71045; 74176; 80053; 80069; 81001; 82728; 82947; 83540; 83550; 83605; 83735; 83880; 84100; 85014; 85018; 85025; 87040; 87086; 93005; 93010; 96365; 99285-25; A9270; C9113; J0360; J0696; J0881; J1644; J1720; J2270; J2405; J7030; J7040; J7060; J7512